=== PATIENT | male | born 1945 | race Caucasian/White ===

== ENCOUNTER 2016-09-09 11:59 | Inpatient (IN) | payer MEDICARE, BC ==
[~2016-09-09] VITALS: Ht 175.3 cm; Wt 74.8 kg
[2016-09-09 12:30] LABS: BASOPHILS # (AUTO) 0.1 /CMM (0.0-0.2); BASOPHILS % (AUTO) 0.8 % (0.0-2.0); EOSINOPHILS # (AUTO) 0.2 /CMM (0.0-0.7); EOSINOPHILS % (AUTO) 2.3 % (0.0-6.0); HEMATOCRIT 48 % (39-51); HEMOGLOBIN 15.6 g/dL (13.5-17.5); LYMPHOCYTES # (AUTO) 1.6 /CMM (0.8-4.8); LYMPHOCYTES % (AUTO) 17.4 % (20.0-44.0); MEAN CORPUSCULAR HEMOGLOBIN 29 PG (26.0-33.0); MEAN CORPUSCULAR HGB CONC 33 g/dl (31.0-36.0); MEAN CORPUSCULAR VOLUME 90 fL (80-96); MONOCYTES # (AUTO) 0.6 /CMM (0.1-1.30); MONOCYTES % (AUTO) 7.1 % (2.0-12.0); NEUTROPHILS # (AUTO) 6.5 /CMM (1.8-8.9); NEUTROPHILS % (AUTO) 72.4 % (43.0-81.0); PLATELET COUNT (AUTO) 336 /CMM (150-450); RDW COEFFICIENT OF VARIATION 11.9 (11.5-15.0); RED BLOOD CELL COUNT(AUTO) 5.32 MIL/uL (4.5-6.0)
[2016-09-09 12:39] LABS: CALCIUM, SERUM 8.7 mg/dL (8.5-10.1); CARBON DIOXIDE 27 mmol/L (21-32); CHLORIDE 103 mmol/L (98-107); CREATININE 1.1 mg/dL (0.6-1.3); GLUCOSE 106 mg/dL (74-106); SODIUM SERUM 139 mmol/L (136-145); UREA NITROGEN, BLOOD 24 mg/dL (7-18)
--- NOTE | 2016-09-09 12:39 | NUR ---
PT REC'D TO ER C/O DIZZNESS RT ARM NUMBESS STARTED TODAY IV STARTED 22G LEFT FA LABS DRAWN SENT TO LAB [facility] AWAITING EVALUATION BY ER PROVIDER.
--- NOTE | 2016-09-09 12:44 | NUR ---
CALLED NURSING DYNAMITE CARTRIDGE CRIMPER FOR TELE BED
--- NOTE | 2016-09-09 12:55 | NUR ---
DR COTO ON THE PHONE WITH DR MIXON
--- NOTE | 2016-09-09 13:17 | NUR ---
TELE 320-1
[2016-09-09] MEDS ORDERED: METO25TA3 PO (13:22)
[2016-09-09] MEDS ORDERED: ATOR10TA PO (13:22)
[2016-09-09] MEDS ORDERED: RANO10003 PO (13:22)
[2016-09-09] MEDS ORDERED: ASPI81TA2 PO (13:22)
[2016-09-09 13:27] LABS: INR 1.17 (0.87-1.13); PROTHROMBIN TIME 12.3 SECS (9.5-12.7)
--- NOTE | 2016-09-09 13:34 | NUR ---
PT BEING ADMITTED FOR CHEST PAIN AND DIZZNESS REPORT CALLED TO FLOOR STABLE FOR TRANSFER
[2016-09-09 15:00] VITALS: BP 108/57
[2016-09-09] MEDS ORDERED: ZOLPIDEM TARTRATE 5 MG TABLET PO PRN (15:00)
[2016-09-09] MEDS ORDERED: ONDANSETRON HCL/PF 4 MG/2 ML VIAL IVP PRN (15:00)
[2016-09-09] MEDS: ENOXAPARIN SODIUM 40 MG/0.4 ML DISP.SYRIN SQ SCH (15:00)
[2016-09-09] MEDS ORDERED: MAG HYDROX/AL HYDROX/SIMETH 30 ML UDC PO PRN (15:00)
[2016-09-09] MEDS ORDERED: ACETAMINOPHEN 325 MG TABLET PO PRN (15:00)
[2016-09-09] MEDS ORDERED: Z GUARD REMEDY 2 OZ OINT TP PRN (15:00)
[2016-09-09] MEDS ORDERED: MORPHINE SULFATE INJ 2 MG/ML DISP.SYRIN IV PRN (15:00)
[2016-09-09] MEDS ORDERED: MAGNESIUM HYDROXIDE 30 ML UDC PO PRN (15:00)
[2016-09-09] MEDS ORDERED: HYDROCODONE/APAP 5/325MG 1 EACH TABLET PO PRN (15:00)
[2016-09-09] MEDS ORDERED: METOPROLOL SUCCINATE 25 MG TAB.SR.24H PO SCH (15:00)
--- NOTE | 2016-09-09 15:00 | NUR ---
RN ADMITTING NOTES RECEIVED REPORT FROM MULTI SITE LEASING CONSULTANTANTHONY. PATIENT ARRIVED TO UNIT FROM ER. VITAL SIGNS ARE STABLE. DENIED CHEST PAIN. NO SIGNS AND SYMPTOMS OF DISTRESS. WILL CONTINUE TO ASSESS AND MONITOR PATIENT THROUGH OUT MY SHIFT
--- NOTE | 2016-09-09 18:29 | NUR ---
RN CLOSING NOTES PATIENT IS IN BED, ALERT AND ORIENTED TO NAME, PLACE AND TIME. NO SIGNS AND SYMPTOMS OF DISTRESS. DENIED PAIN. PATIENT REFUSED LOVENOX. PATIENT REFUSED METOPROLOL HE WAS TAKING HIS DAILY DOSE ALREADY EARLIER TODAY AT HOME PRIOR TO ADMISSION. IV SITE INTACT AND PATENT. BED IN LOW POSITION, LOCKED AND TWO SIDE RAILS ARE UP. WILL ENDORSE TO CLERICAL PROOFREADER NURSE.
[2016-09-09 20:00] VITALS: BP 127/77
--- NOTE | 2016-09-09 20:00 | NUR ---
TELE UNDERLINER INITIAL NOTES GOT REPORT FROM AM NURSE AND CHECKED PT , HE IN HIS ROOM AWAKE SITTING IN HIS BED WHILE WATCHING TV AT THIS TIME. DENIES ANY PAIN OR ANY DISCOMFORT. TELE A-FLUTTER HEART RATE 76. PT STATED HE DOESN'T HAVE ANY CHEST PAIN OR DIZZINESS. KEPT HIM WARM AND COMFORTABLE AT ALL TIMES. PLACE CALL LIGHT AT REACH. WILL CONTINUE TO MONITOR.
[2016-09-09 20:17] VITALS: BP 127/77
[2016-09-09] MEDS: ATORVASTATIN 40 MG TABLET PO SCH (21:51)
[2016-09-10] VITALS (9 sets, daily range): BP systolic 105–128; BP diastolic 64–82
--- NOTE | 2016-09-10 | NUR ---
TELE ENGINE TURNER NOTES CHECKED PT HE'S RESTING WITH EYES CLOSED NOT IN ANY ACUTE DISTRESS NOTED. TELE A-FIB , HEART RATE 76 PER MONITOR. KEPT HIM WARM AND COMFORTABLE AT ALL TIMES. STABLE DEANN THE NIGHT. VITAL SIGNS WITHIN NORMAL LIMIT. ENDORSE TO AM NURSE FOR CONTINUITY OF CARE.
[2016-09-10 07:08] LABS: BASOPHILS # (AUTO) 0.1 /CMM (0.0-0.2); BASOPHILS % (AUTO) 0.6 % (0.0-2.0); EOSINOPHILS # (AUTO) 0.3 /CMM (0.0-0.7); EOSINOPHILS % (AUTO) 2.6 % (0.0-6.0); HEMATOCRIT 44 % (39-51); HEMOGLOBIN 15.4 g/dL (13.5-17.5); LYMPHOCYTES % (AUTO) 19.1 % (20.0-44.0); MEAN CORPUSCULAR HEMOGLOBIN 31 PG (26.0-33.0); MEAN CORPUSCULAR HGB CONC 35 g/dl (31.0-36.0); MEAN CORPUSCULAR VOLUME 90 fL (80-96); MONOCYTES # (AUTO) 0.9 /CMM (0.1-1.30); MONOCYTES % (AUTO) 8.2 % (2.0-12.0); NEUTROPHILS # (AUTO) 7.3 /CMM (1.8-8.9); NEUTROPHILS % (AUTO) 69.5 % (43.0-81.0); PLATELET COUNT (AUTO) 294 /CMM (150-450); RDW COEFFICIENT OF VARIATION 12.9 (11.5-15.0); RED BLOOD CELL COUNT(AUTO) 4.96 MIL/uL (4.5-6.0); WHITE BLOOD COUNT (AUTO) 10.5 K/uL (4.3-11.0)
[2016-09-10 07:22] LABS: CALCIUM, SERUM 8.8 mg/dL (8.5-10.1); CARBON DIOXIDE 30 mmol/L (21-32); CHLORIDE 104 mmol/L (98-107); CREATININE 1.2 mg/dL (0.6-1.3); GLUCOSE 97 mg/dL (74-106); MAGNESIUM 2.3 mg/dL (1.8-2.4); PHOSPHORUS 3.5 mg/dL (2.5-4.9); POTASSIUM 4.1 mmol/L (3.5-5.1); SODIUM SERUM 140 mmol/L (136-145); UREA NITROGEN, BLOOD 24 mg/dL (7-18)
--- NOTE | 2016-09-10 07:40 | NUR ---
CONSULTING HR PROFESSIONAL NOTES PT IN BED, ASLEEP, EASILY AROUSABLE BY VERBAL STIMULI, ALERT AND ORIENTED, NO COMPLAINT OF PAIN OR ANY DISCOMFORT, RESPIRATIONS NORMAL, CALL LIGHT WITHIN REACH.
[2016-09-10] MEDS: PANTOPRAZOLE 40 MG TABLET.DR PO SCH (08:25)
[2016-09-10] MEDS: ASPIRIN 81 MG TAB.CHEW PO SCH (08:25)
[2016-09-10] MEDS: METOPROLOL SUCCINATE 25 MG TAB.SR.24H PO SCH (08:50)
--- NOTE | 2016-09-10 09:00 | NUR ---
SENIOR JAVA DATA ARCHITECT NOTES PT PREFERS TO HAVE HIS HOME MEDICATION RANEXA WITH HIM, EXPLAINED TO HIM THAT PHARMACY WOULD LIKE TO CHECK IT, PT STILL PREFERS TO HAVE IT WITH HIM, PHARMACY INFORMED.
--- NOTE | 2016-09-10 12:27 | NUR ---
ANCHOR OPERATOR NOTES PT IN BED, EATING LUNCH, NO COMPLAINT OF PAIN OR ANY DISCOMFORT, RESPIRATIONS NORMAL, CALL LIGHT WITHIN REACH, NEEDS ATTENDED.
[2016-09-10] MEDS ORDERED: IBUPROFEN 400 MG TABLET PO PRN (14:30)
[2016-09-10] MEDS: HOME MED - RANEXA 1000MG PO SCH (17:33)
--- NOTE | 2016-09-10 18:30 | NUR ---
PRODUCTION HAND NOTES PT IN BED, AWAKE, ALERT AND ORIENTED, ABLE TO AMBULATE IN THE ROOM AND ALONG THE HALLWAY WITH STEADY GAIT, NO COMPLAINT OF PAIN, RESPIRATIONS NORMAL, SEEN BY DR. LIPSCOMB, INFORMED OF LATEST STRESS TEST RESULT FROM A PREVIOUS PRICING CONSULTANT, PLAN OF CARE DISCUSSED WITH PT, VERBALIZED UNDERSTANDING, ALL NEEDS ATTENDED.
--- NOTE | 2016-09-10 20:00 | NUR ---
PATIENT AMBULATING IN ROOM, NO DISTRESS, STEADY GAIT, NO DIZZINESS, PER PATIENT "I STILL FEEL LIKE I HAVE COTTON IN MY HEAD, BUT I AM OKAY NOW." NEEDS ATTENDED, CALL LIGHT WITHIN REACH.
[2016-09-10] MEDS: ENOXAPARIN SODIUM 40 MG/0.4 ML DISP.SYRIN SQ SCH (21:00)
--- NOTE | 2016-09-10 21:12 | NUR ---
PATIENT REFUSED LOVENOX, EXPLAINED TO PATIENT RISKS AND BENEFITS, PATIENT STILL REFUSED, OFFERED X3
[2016-09-10] MEDS: ATORVASTATIN 40 MG TABLET PO SCH (21:35)
[2016-09-11] VITALS: BP_SYST 126; BP_SYST 127; BP_DIAS 71; BP_DIAS 74
[2016-09-11 04:00] VITALS: BP 126/75
--- NOTE | 2016-09-11 06:32 | NUR ---
PATIENT IS ALERT AND AWAKE, NO RESPIRATORY DISTRESS, DENIES ANY PAIN, NO ADVERSE CHANGE OF CONDITION DURING SHIFT, SLEPT FOR 8 HOURS, NEEDS ATTENDED, CALL LIGHT WITHIN REACH.
[2016-09-11 07:06] VITALS: BP 123/76
[2016-09-11] MEDS: ASPIRIN 81 MG TAB.CHEW PO SCH (08:13)
[2016-09-11] MEDS: PANTOPRAZOLE 40 MG TABLET.DR PO SCH (08:13)
[2016-09-11 08:14] VITALS: BP 123/76
[2016-09-11] MEDS: HOME MED - RANEXA 1000MG PO SCH (08:14)
[2016-09-11] MEDS: METOPROLOL SUCCINATE 25 MG TAB.SR.24H PO SCH (08:14)
--- NOTE | 2016-09-11 11:05 | NUR ---
TANK SHOP SUPERVISORPIPE FITTER MARINE NOTE NO SIGNIFICANT CHANGES IN PATIENT CONDITION THROUGHOUT THE SHIFT. NO SOB OR DISTRESS NOTED AT THIS TIME. PATIENT DENIES PAIN. NO PICTURES NEEDED PATIENT SKIN IS INTACT. VITALS CHECKED AND RECORDED. ALL PAPERWORK SIGNED AND BELONGINGS ACCOUNTED FOR. DISCHARGE INSTRUCTIONS GIVEN TO PATIENT AND ABLE TO UNDERSTAND. IV DISCONNECTED AND PRESSURE APPLIED. NO BLEEDING NOTED AT THE SITE. PATIENT LEFT IN STABLE CONDITION, AMBULATORY AND TOLERATED WELL. PATIENT DISCHARGED TO HOME.
== END 2016-09-11 10:55 | disposition home or self-care (01) | DRG 206 ==
LOC: ER 12:00 → TELE 13:35 → MED 09-11 10:20
PROVIDERS: ADMIT Internal Medicine; ATTEND Internal Medicine
DX: M94.0 Chondrocostal junction syndrome [Tietze] (principal); I10 Essential (primary) hypertension; I48.91 Unspecified atrial fibrillation; Z79.82 Long term (current) use of aspirin; K64.9 Unspecified hemorrhoids; I25.10 Atherosclerotic heart disease of native coronary artery without angina pectoris; I48.2 Chronic atrial fibrillation; E78.5 Hyperlipidemia, unspecified; R42 Dizziness and giddiness; R94.39 Abnormal result of other cardiovascular function study
CPT/HCPCS: 36415; 70450-TC; 71010-TC; 80048-TC; 80305; 83735-TC; 84100-TC; 84484-TC; 85025-TC; 85730-TC; 87081-TC; 93307-TC; A4606; Z7610